=== PATIENT | male | born 1955 | race Hispanic/Latino ===

== ENCOUNTER → 2019-03-24 | Outpatient (CLI) | payer OTHER ==
[~2019-03-24] MED LIST: LISI-613 PO
[2019-03-24 13:25] LABS: CREATININE 0.9 mg/dL (0.5-1.5)
== END | disposition home or self-care (01) ==
LOC: LAB 12:32
PROVIDERS: ATTEND Surgery
DX: M25.539 Pain in unspecified wrist (principal)
CPT/HCPCS: 36415; 82565; 84520

== ENCOUNTER → 2019-03-27 | Outpatient (CLI) | payer OTHER ==
[~2019-03-27] MED LIST changes: +IOHEXOL-350 50ML VIAL IV ONE
== END | disposition home or self-care (01) ==
LOC: RAH 10:27
PROVIDERS: ATTEND Surgery
DX: S52.501D Unspecified fracture of the lower end of right radius, subsequent encounter for closed fracture with routine healing (principal); X58.XXXD Exposure to other specified factors, subsequent encounter
CPT/HCPCS: 73201; Q9967

== ENCOUNTER 2019-08-07 07:03 | Day surgery (SDC) | payer OTHER ==
[2019-08-04 12:14] LABS: BASOPHILS % (AUTO) 0.5 % (0.0-5.0); EOSINOPHILS % (AUTO) 0.8 % (0.0-8.0); HEMATOCRIT 44.9 % (42-54); LYMPHOCYTES % (AUTO) 36.7 % (21.0-51.0); MEAN CORPUSCULAR HEMOGLOBIN 31.4 pg (27.0-33.0); MEAN CORPUSCULAR HGB CONC 34.1 g/dL (32.0-36.0); MEAN CORPUSCULAR VOLUME 92.2 fL (79-99); NEUTROPHILS % (AUTO) 54.5 % (40.0-77.0); PLATELET COUNT (AUTO) 203 K/uL (130-400); RED BLOOD CELL COUNT(AUTO) 4.87 MIL/uL (4.50-6.20); RED CELL DISTRIBUTION WIDTH 12.3 % (11.0-15.5); WHITE BLOOD COUNT (AUTO) 8.5 K/uL (4.8-10.8)
[2019-08-04 12:23] LABS: CREATININE 0.9 mg/dL (0.5-1.5); POTASSIUM 4.6 mmol/L (3.5-5.1)
[2019-08-04 13:15] VITALS: BP 179/92
[2019-08-07] VITALS (20 sets, daily range): BP systolic 125–152; BP diastolic 63–98
[~2019-08-07] VITALS: Ht 175.3 cm; Wt 97.1 kg
[2019-08-07] MEDS: CEFAZOLIN SODIUM 1 GM VIAL IVP SCH ×2 (06:00→08:20)
[~2019-08-07 07:03] MED LIST changes: +ALPR-412 PO; -IOHEXOL-350 50ML VIAL IV ONE; +SODIUM CHLORIDE 0.9% 500ML 500 ML IV SCH; +TAMS-1 PO
[2019-08-07] MEDS ORDERED: LACTATED RINGERS 1000ML 1,000 ML IV ONE (07:37)
[2019-08-07] MEDS ORDERED: BUPIVACAINE/PF 0.5% 30ML VIAL ONE (07:39)
[2019-08-07] MEDS ORDERED: PROPOFOL 10 MG/ML 20ML VIAL IV ONE ×2 (07:52→08:33)
[2019-08-07] MEDS ORDERED: MIDAZOLAM HCL 1 MG/ML 2ML VIAL ONE (07:52)
[2019-08-07] MEDS ORDERED: FENTANYL CITRATE PF 50 MCG/1 ML 2ML VIAL ONE ×2 (07:53→08:36)
[2019-08-07] MEDS ORDERED: ONDANSETRON HCL 4 MG/2 ML VIAL ONE (07:55)
[2019-08-07] MEDS ORDERED: ROCURONIUM 10MG/1ML SYR 10 MG/ML ML ONE (07:56)
[2019-08-07] MEDS ORDERED: EPHEDRINE SULFATE 50 MG/ML AMPULE ONE (08:26)
[2019-08-07] MEDS ORDERED: MEPERIDINE-PF 25 MG/ML SYG ONE (09:40)
[2019-08-07] MEDS ORDERED: KETOROLAC TROMETHAMINE 15MG/ML ONE (09:51)
--- NOTE | 2019-08-07 11:36 | NUR ---
DISCUSSED WOUND CARE AT HOME , PER DOCTOR BECKY REMOVE DRESSING TOMORROW 08/08/19 AND LEAVE OPEN TO AIR. EXPLAINED S/S OF INFECTION TO PATIENT NO CONCERNS VOICED.
== END 2019-08-07 11:25 | disposition home or self-care (01) ==
LOC: DAH 07:03
PROVIDERS: ATTEND Surgery
DX: D17.21 Benign lipomatous neoplasm of skin and subcutaneous tissue of right arm (principal); I10 Essential (primary) hypertension; G47.00 Insomnia, unspecified; E66.9 Obesity, unspecified; F41.9 Anxiety disorder, unspecified; Z79.899 Other long term (current) drug therapy; Z98.890 Other specified postprocedural states; Z68.31 Body mass index [BMI] 31.0-31.9, adult; Z87.891 Personal history of nicotine dependence; Z72.89 Other problems related to lifestyle; Z83.3 Family history of diabetes mellitus; Z82.49 Family history of ischemic heart disease and other diseases of the circulatory system
CPT/HCPCS: 36415; 80048; 85025; 88305; J0690; J1885; J2175; J2250; J2405; J2704; J3010; J3490; J7120